=== PATIENT | female | born 2000 | race Caucasian/White ===

== ENCOUNTER 2018-12-05 13:17 | Emergency (ER) | payer MEDICAID ==
[~2018-12-05] VITALS: Ht 167.6 cm; Wt 107.5 kg
[2018-12-05 13:29] VITALS: BP 142/97
--- NOTE | 2018-12-05 13:41 | NUR ---
ACCU CHECK 90, PT GIVING URINE SAMPLE. VSS. AA0X4. PT TO WAIT IN ER LOBBY FOR BED
--- NOTE | 2018-12-05 15:30 | NUR ---
AA0X4. RR EVEN AND UNLABORED. WILL CONTINUE TO MONITOR PT
--- NOTE | 2018-12-05 16:51 | NUR ---
PT TAKEN TO BED 10.
--- NOTE | 2018-12-05 17:11 | NUR ---
PT BIB SELF C/O DIZZINESS WITH EAR ACHE AND SORE THROAT X 1 DAY AND N/V/D AND HEADACHE X3 DAYS. PATIENT STATES SHE PEED HERSELF WHILE AT WORK AND DIDNT REALIZE IT. PT REPORTS HEADAHCE AND BODYACHES AT 6/10, AND NON RADIATING BURNING EPIGASTRIC PAIN AT 7/10 THAT INCREASES WHEN SHE BENDS OVER WITH NO ALIEVIATING FACTORS. PT REPORTS 1 EPISODE OF ACIDIC EMESIS, AND 3 EPISODES OF DARK GREEN DIARRHEA. PATIENT STATES SHE HAS ONLY ATE A BANANA AND APPLE TODAY, AND PATIENT STATES SHE PEED HERSELF WHILE AT WORK AND DIDNT REALIZE IT. PMH- DENIES
[2018-12-05] MEDS ORDERED: NACL 0.9% 1,000 ML IV SCH (18:06)
[2018-12-05] MEDS ORDERED: ONDANSETRON 4 MG/2 ML VIAL IVP ONE (18:10)
--- NOTE | 2018-12-05 18:42 | NUR ---
PT LET FOR CT.
[2018-12-05 18:48] LABS: BASOPHILS % (AUTO) 0.3 % (0.0-2.0); EOSINOPHILS # (AUTO) 0.1 K/uL (0-0.4); EOSINOPHILS % (AUTO) 0.6 % (0.0-4.0); HEMATOCRIT 41.1 % (36-48); HEMOGLOBIN 13.4 g/dL (12.0-16.0); LYMPHOCYTES # (AUTO) 1.6 K/uL (2.5-16.5); LYMPHOCYTES % (AUTO) 13.5 % (20.5-51.1); MEAN CORPUSCULAR HEMOGLOBIN 27 pg (27-31); MEAN CORPUSCULAR HGB CONC 33 g/dL (33-37); MONOCYTES # (AUTO) 0.8 K/uL (0.8-1.0); MONOCYTES % (AUTO) 6.6 % (1.7-9.3); NEUTROPHILS # (AUTO) 9.1 K/uL (1.8-7.7); PLATELET COUNT (AUTO) 302 K/uL (140-450); RED BLOOD CELL COUNT(AUTO) 4.95 MIL/uL (4.20-5.40); RED CELL DISTRIBUTION WIDTH 15.1 % (11.6-13.7); WHITE BLOOD COUNT (AUTO) 11.5 K/uL (4.5-11.0)
[2018-12-05 18:50] LABS: APPEARANCE,URINE CLEAR (CLEAR); BILIRUBIN,URINE NEGATIVE (NEGATIVE); BLOOD, URINE 2+ (NEGATIVE); COLOR,URINE YELLOW (YELLOW); LEUKOCYTE ESTERASE ,URINE NEGATIVE (NEGATIVE); NITRITE, URINE NEGATIVE (NEGATIVE); UGLUCOSE NEGATIVE (NEGATIVE)
--- NOTE | 2018-12-05 18:52 | NUR ---
PT RETURNED FROM CT.
[2018-12-05 19:07] LABS: RBC,URINE 0-5 /HPF (0-5)
[2018-12-05 19:08] LABS: WBC,URINE 0-5 /HPF (0-5)
--- NOTE | 2018-12-05 19:22 | NUR ---
REPORT RECEIVED FROM AJITH DAVENPORT. PT AWAKE, LAYING ON BED. CURRENTLY DENIES ANY NVD. PT VSS. ERMD AWARE. WILL CONTINUE TO MONITOR.
[2018-12-05 19:49] LABS: ALBUMIN 3.9 g/dL (3.4-5.0); CARBON DIOXIDE 27.5 mmol/L (21-32); CREATININE 0.8 mg/dL (0.6-1.3); TOTAL BILIRUBIN 0.7 mg/dL (0.0-1.0)
[2018-12-05 20:03] LABS: ANION GAP 12.6 (8-16); POTASSIUM 3.1 mmol/L (3.5-5.1)
[2018-12-05 20:22] VITALS: BP 121/75
--- NOTE | 2018-12-05 20:22 | NUR ---
PT DISCHARGED WITH PAPERWORK. RX POTASSIUM CHLORIDE. EDUCATED PT REGARDING MEDICATION AND S/E. EDUCATED PT REGARDING DISCHARGE DIAGNOSIS. PT VERBALIZED UNDERSTANDING OF TEACHING. TOLD PT TO FOLLOW UP WITH PCP AND WHEN TO RETURN TO ED. PT VSS. DENIES ANY N/V/D. DENIES ANY DIZZINESS. ALL QUESTIONS ANSWERED.
== END 2018-12-05 20:22 | disposition home or self-care (01) ==
LOC: MED 13:17
DX: R51 Headache (principal); R11.0 Nausea; K92.1 Melena
CPT/HCPCS: 36415; 70450; 80053; 81001; 81025; 83690; 84703; 85025; 96361; 96374; 99284; J2405; J7030

== ENCOUNTER 2019-02-14 19:30 | Emergency (ER) | payer MEDICAID ==
[~2019-02-14] VITALS: Ht 170.2 cm; Wt 104.3 kg
[2019-02-14 19:40] VITALS: BP 140/70
--- NOTE | 2019-02-14 19:40 | NUR ---
TO BED # 2 AMBULATORY
--- NOTE | 2019-02-14 19:50 | NUR ---
PT C/O RT SIDED FLANK PAIN X1 DAY. PT STATES INCREASE IN URINARY FREQUENCY. DENIES DYSURIA. DENIES TRAUMA TO BACK. PT STATES SHE "THINKS SHE FAINTED" X2 DAYS AGO. PT STATES SHE HAS CHILLS. PT HAS TAKEN NO MEDICATION TODAY. LMP X3 MONTHS AGO. RR EVEN AND UNLABORED. PT SITTING IN BED CALM AND PLEASANT. VSS MEDHX: ASTHMA ALLERGIES: DENIES
--- NOTE | 2019-02-14 20:31 | NUR ---
LAB AT BEDSIDE.
--- NOTE | 2019-02-14 20:38 | NUR ---
PT LAYING IN BED IN COMFORTABLE POSITION. BED LOCKED AND IN LOW POSITION. VSS. WILL CONTINUE TO MONITOR
[2019-02-14 20:44] LABS: BASOPHILS # (AUTO) 0.1 K/uL (0.00-0.22); BASOPHILS % (AUTO) 0.5 % (0.0-2.0); EOSINOPHILS % (AUTO) 0.2 % (0.0-4.0); HEMATOCRIT 40.6 % (36-48); HEMOGLOBIN 13.4 g/dL (12.0-16.0); LYMPHOCYTES # (AUTO) 0.7 K/uL (2.5-16.5); LYMPHOCYTES % (AUTO) 4.5 % (20.5-51.1); MEAN CORPUSCULAR HEMOGLOBIN 29 pg (27-31); MEAN CORPUSCULAR HGB CONC 33 g/dL (33-37); MEAN CORPUSCULAR VOLUME 87.4 fL (80-94); MONOCYTES # (AUTO) 0.9 K/uL (0.8-1.0); MONOCYTES % (AUTO) 6.2 % (1.7-9.3); NEUTROPHILS # (AUTO) 13.2 K/uL (1.8-7.7); NEUTROPHILS % (AUTO) 88.6 % (42.2-75.2); PLATELET COUNT (AUTO) 276 K/uL (140-450); RED BLOOD CELL COUNT(AUTO) 4.64 MIL/uL (4.20-5.40); RED CELL DISTRIBUTION WIDTH 14.9 % (11.6-13.7); WHITE BLOOD COUNT (AUTO) 14.9 K/uL (4.5-11.0)
[2019-02-14 21:02] LABS: ANION GAP 14.7 (8-16); CARBON DIOXIDE 25.8 mmol/L (21-32); CREATININE 0.6 mg/dL (0.6-1.3); POTASSIUM 3.5 mmol/L (3.5-5.1)
[2019-02-14 21:46] LABS: ALBUMIN 3.3 g/dL (3.4-5.0); BILIRUBIN,DIRECT 0.1 mg/dL (0.0-0.3); TOTAL BILIRUBIN 0.4 mg/dL (0.0-1.0)
--- NOTE | 2019-02-14 22:02 | NUR ---
PT IN BED POSITIONED FOR COMFORT. BED LOCKED AND IN LOW POSITION. PT STATES 2/10 FLANK PAIN AT THIS TIME. VSS. WILL CONTINUE TO MONITOR.
--- NOTE | 2019-02-14 23:40 | NUR ---
PT RESTING IN BED WITH EYE CLOSED, VSS. WILL CONTINUE TO MONITOR.
[2019-02-14 23:45] LABS: APPEARANCE,URINE HAZY (CLEAR); BILIRUBIN,URINE NEGATIVE (NEGATIVE); BLOOD, URINE 3+ (NEGATIVE); COLOR,URINE YELLOW (YELLOW); LEUKOCYTE ESTERASE ,URINE 2+ (NEGATIVE); NITRITE, URINE NEGATIVE (NEGATIVE); UGLUCOSE NEGATIVE (NEGATIVE)
[2019-02-14 23:54] LABS: WBC,URINE 20-60 /HPF (0-5)
[2019-02-15] MEDS ORDERED: NACL 0.9% 1,000 ML IV ONE (00:35)
--- NOTE | 2019-02-15 00:35 | NUR ---
PT AMBULATED TO RESTROOM
[2019-02-15] MEDS ORDERED: cefTRIAXone 1,000 MG VIAL ONE (00:38)
[2019-02-15 01:46] VITALS: BP 116/60
--- NOTE | 2019-02-15 01:47 | NUR ---
Patient discharged with v/s stable. Written and verbal after care instructions given and explained. Patient alert, oriented and verbalized understanding of instructions. Ambulatory with to home. All questions addressed prior to discharge. ID band removed. Patient advised to follow up with PMD. Rx of KEFLEX AND ACETAMINOPHEN given. Patient educated on indication of medication including possible reaction and side effects. Opportunity to ask questions provided and answered.
== END 2019-02-15 01:47 | disposition home or self-care (01) ==
LOC: MED 19:30
DX: O23.01 Infections of kidney in pregnancy, first trimester (principal); O21.8 Other vomiting complicating pregnancy; O99.281 Endocrine, nutritional and metabolic diseases complicating pregnancy, first trimester; R19.7 Diarrhea, unspecified; N12 Tubulo-interstitial nephritis, not specified as acute or chronic; J45.909 Unspecified asthma, uncomplicated; Z3A.09 9 weeks gestation of pregnancy
CPT/HCPCS: 36415; 76801; 80048; 80076; 81001; 81025; 84702; 85025; 87086; 87186; 93005; 96365; 99284; J0696; J7030; Q0092